=== PATIENT | male | born 1965 | race Two or more races ===

== ENCOUNTER 2024-07-09 12:30 | Day surgery (SDC) | payer BC, SELFPAY ==
[2024-07-08 14:39] VITALS: BMI 26.6
[2024-07-09] VITALS (11 sets, daily range): BP systolic 116–165; BP diastolic 81–102; PULSE 66–81; RESP 14–20; TEMP 36.2–36.5; O2SAT 96–100; BMI 25.8
[2024-07-09] MEDS: RINGERS LACTATED 1000 ML 1,000 ML 100 ML IV (14:43)
[2024-07-09] MEDS: fentaNYL CIT INJ 50 mCg/ML AMP 2ML (ASD USE ONLY) IV (14:48)
[2024-07-09] MEDS: MIDAZOLAM INJ 1 MG/ML VIAL 2 ML (ASD USE ONLY) 2 MG IV (14:48)
[2024-07-09] MEDS: SIMETHICONE 40 MG/0.6 ML ORAL SYRINGE PO (15:02)
== END 2024-07-09 15:57 | disposition home or self-care (01) ==
PROVIDERS: PCP Physician Assistant Medical; Referring Provider Surgery; Visit Provider Surgery
PROC: 0DBE8ZX Excision of Large Intestine, Via Natural or Artificial Opening Endoscopic, Diagnostic (ICD-10-PCS; CPT 45380; principal; 2024-07-09 14:30)
DX: Z12.11 Encounter for screening for malignant neoplasm of colon (principal)
CPT/HCPCS: 45378; J2250; J3010; J7120; A9270